=== PATIENT | female | born 2000 | race Caucasian/White ===

== ENCOUNTER 2022-03-18 15:25 | Emergency (ER) | payer OTHER, SELFPAY ==
[2022-03-18 16:13] VITALS: BP 148/83; PULSE 100; RESP 16; TEMP 36.6; O2SAT 98; BMI 29.6
--- NOTE | 2022-03-18 17:27 | ED_ITS ---
HPI - General Adult General: Chief complaint: General Medical Stated complaint: back pain/painful urination/bloodclots in urine Time Seen by Provider: 03/18/22 17:21 History of Present Illness: Patient is a 21-year-old female who comes to the ED with right flank pain and hematuria. Symptoms started last night. Right flank pain radiates down into the right lower back and into the right pelvic region. Most of the pain now is in her right lower pelvic region. She says her pain last night was an 8 out of 10 and she also had some nausea with it. Associated symptoms: Deny chest pain, dyspnea, headache(s), nausea, rash, palpitations or vomiting Review of Systems Const: Denies: fever(s), chills or fatigue Eyes: Denies: change in vision or eye discomfort ENMT: Denies: throat pain, odynophagia, nasal discharge or nasal congestion Card: Denies: chest pain, palpitations, edema, swelling of feet/ankles, dyspnea on exertion or orthopnea Resp: Denies: dyspnea, productive cough or non-productive cough GI: Denies: abdominal pain, nausea, vomiting, diarrhea, constipation or hematochezia : Reports: flank pain (Right flank), dysuria and hematuria Musc: Denies: neck pain, back pain or extremity swelling Skin/Breast: Denies: rash or new lesions Neuro: Denies: headache(s), numbness in extremities or weakness in extremities PFS ED PFSH: Medical History Family history of kidney stone No pertinent past medical history Physical Exam Const: COMMON NORMALS: no acute distress, patient oriented x3 and alert GENERAL APPEARANCE: cooperative and comfortable HENMT: COMMON NORMALS: normocephalic HEAD & SCALP: normocephalic MOUTH: Normal oral and palatal mucosa present THROAT: posterior oropharynx normal and uvula midline Neck/C-Spine: COMMON NORMALS: supple GENERAL: Yes normal visual inspection Resp: COMMON NORMALS: normal respiratory effort, No retractions, No use of accessory muscles and clear to auscultation bilaterally AUSCULTATION: clear to auscultation bilaterally Cardio: COMMON NORMALS: regular rate, regular rhythm, S1 normal heart sound present, S2 normal heart sound present, No gallops present (Cardio), No clicks present (Cardio), No murmurs present (Cardio) and Peripheral pulses 2+ throughout RATE: regular rate RHYTHM: regular rhythm HEART SOUNDS: S1 normal heart sound present and S2 normal heart sound present PERIPHERAL PULSES: Peripheral pulses 2+ throughout GI: COMMON NORMALS: Normal to inspection, nondistended, normoactive bowel sounds present, Soft to palpation, non-tender and no masses PALPATION: Yes Soft to palpation and Yes Bladder palpation abnormal : COMMON NORMALS: Yes no CVA tenderness BLADDER/KIDNEY EXAM: Yes no CVA tenderness and Yes Bladder palpation abnormal Bladder abnormal details: tender Back/Pelvis: COMMON NORMALS: no CVA tenderness Extremity: COMMON NORMALS: normal to inspection Neuro: COMMON NORMALS: patient oriented x3 and moves all extremities SENSORIUM/ORIENTATION: Yes alert Skin: GENERAL SKIN EXAM: dry skin Course Vital Signs: Vital signs: Vital Signs Temperature 97.9 F 03/18/22 16:13 Pulse Rate 90 03/18/22 20:34 Respiratory Rate 18 03/18/22 20:34 Blood Pressure 153/95 03/18/22 20:34 Pulse Oximetry 98 03/18/22 20:34 [facility] - General Adult Medical Decision Making Patient is a 21-year-old female comes to the ED with right flank pain, dysuria and hematuria. Vitals are stable. Patient appears nontoxic in no acute distress or pain. She has some tenderness upon palpation of the bladder and rest of exam is benign. White blood cell count of 12. UA shows signs of UTI. hCG negative. CT abdomen pelvis showed cystitis with bilateral pyelitis and no obstruction noted. Patient was given IV morphine and it helped with pain. She was given a dose of IV antibiotics here in the ED and was stable for discharge home. She is diagnosed with a UTI and was discharged home with a prescription for ciprofloxacin. She was told to follow-up with her PCP in the next week for reevaluation. Strict return to ED precautions given. Patient understood and agreed with plan. Lab Data I reviewed the patient's lab results. : 03/18/22 17:33 03/18/22 17:33 Radiology Impressions Abdomen/Pelvis CT 03/18/22 17:41 IMPRESSION: 1. Suggestive findings of cystitis and bilateral pyelitis. No obstruction. 2. Appendix is at the upper limit of normal in size. There is no secondary sign of inflammation. No appendicolith. 3. Small volume intermediate density pelvic free fluid. Findings suggest proteinaceous fluid or blood products. This is nonspecific but could be the result of ovarian cyst rupture. Laboratory Results WBC 12.0 10^3/uL (4.0-10.0) H 03/18/22 17: RBC 4.61 10^6/uL (4.1-5.3) 03/18/22 17: Hgb 12.9 g/dL (11.5-15.3) 03/18/22 17: Hct 40.6 % (37.0-47.0) 03/18/22 17: MCV 88.1 fl (81-99) 03/18/22: MCH 28.0 pg (28.0-34.0) 03/18/22: MCHC 31.8 g/dL (30.0-36.0) 03/18/22: RDW 14.2 % (12.1-15.1) 03/18/22: Plt Count 301 10^3/cmm (130-400) 03/18/22 17: MPV 10.7 fL (7.4-10.4) H 03/18/22 17: Neut % (Auto) 76.1 % 03/18/22 17: Lymph % (Auto) 15.7 % 03/18/22 17: [place] % (Auto) 6.7 % 03/18/22 17: Eos % (Auto) 0.6 % 03/18/22 17: Baso % (Auto) 0.4 % 03/18/22: Neut # (Auto) 9.12 10^3/uL (1.8-7.7) H 03/18/22 17: Lymph # (Auto) 1.9 10^3/uL (0.8-4.8) 03/18/22: [place] # (Auto) 0.8 10^3/uL (0.2-0.9) 03/18/22 17: Eos # (Auto) 0.1 10^3/uL (0.0-0.8) 03/18/22 17: Baso # (Auto) 0.1 10^3/uL (0.0-0.1) 03/18/22 17:33 Nucleated RBC % (auto) 0 % 03/18/22 17:33 Nucleated RBCs # 0.0 /100WBC 03/18/22 17:33 Sodium 137 mmol/L (136-145) 03/18/22 17:33 Potassium 4.4 mmol/L (3.5-5.1) 03/18/22 17:33 Chloride 103 mmol/L (98-107) 03/18/22 17:33 Carbon Dioxide 19 mmol/L (22-29) L 03/18/22 17:33 Anion Gap 19.4 (5-19) H 03/18/22 17:33 BUN 10 mg/dL (6-20) 03/18/22 17:33 Creatinine 0.5 mg/dL (0.5-0.9) 03/18/22 17:33 GFR Calculation 154.3 mL/min (90-130) H 03/18/22 17:33 Glucose 81 mg/dL (65-115) 03/18/22 17:33 Calculated Osmolality 282 mOsm/kg (285-295) L 03/18/22 17:33 Calcium 8.5 mg/dL (8.5-10.5) 03/18/22 17:33 Total Bilirubin 0.3 mg/dL (0.15-1.2) 03/18/22 17:33 AST 16 U/L (0-32) 03/18/22 17:33 ALT 11 U/L (0-33) 03/18/22 17:33 Alkaline Phosphatase 91 IU/L (35-105) 03/18/22 17:33 Total Protein 6.8 g/dL (6.6-8.7) 03/18/22 17:33 Albumin 4.6 g/dL (3.5-5.2) 03/18/22 17:33 Globulin 2.2 g/dL (1.3-4.6) 03/18/22 17:33 Lipase 39 U/L (13-60) 03/18/22 17:33 HCG, Qual Negative (Negative) 03/18/22 17:33 Urine Color [place] (Yellow) 03/18/22 17:35 Urine Appearance Clear (CLEAR) 03/18/22 17:35 Urine pH 6.5 (5-7) 03/18/22 17:35 Ur Specific [place] 1.005 (1.005-1.030) 03/18/22 17:35 Urine Protein 1+ (Negative) H 03/18/22 17:35 Urine Glucose (UA) Norm (Normal) 03/18/22 17:35 Urine Ketones Negative (Negative) 03/18/22 17:35 Urine Blood 3+ (Negative) H 03/18/22 17:35 Urine Nitrate Positive (Negative) H 03/18/22 17:35 Urine Bilirubin 1+ (Negative) H 03/18/22 17:35 Urine Urobilinogen 4 mg/dL (Negative) H 03/18/22 17:35 Ur Leukocyte Esterase 2+ (Negative) H 03/18/22 17:35 Urine RBC 0-4 /hpf (0-2) H 03/18/22 17:35 Urine WBC 25-40 /hpf (0-5) H 03/18/22 17:35 Ur Squamous Epith Cells 0-4 /hpf (0-5) H 03/18/22 17:35 Amorphous Sediment Not Reportable 03/18/22 17:35 Urine Bacteria Trace /hpf (NONE) 03/18/22 17:35 Discharge Plan Discharge Patient Disposition: Home Clinical Impression: UTI (urinary tract infection) Qualifiers: Urinary tract infection type: acute cystitis Hematuria presence: with hematuria Qualified Code(s): N30.01 - Acute cystitis with hematuria Condition: Stable Prescriptions: New ciprofloxacin HCl 500 mg tablet 500 mg PO BID 7 Days Qty: 14 0RF Discharge Orders: Discharge ED (Routine); Ordered 03/18/22 Ordered By: Jed Mack Discharge Diet: Regular Discharge Activity: Increase activity as tolerated Patient Instructions: Urinary Tract Infection in Women (DC) Activity Restrictions/Additional Instructions: Follow-up with medical provider as directed in the next 3 to 5 days for reevaluation. Take medications as prescribed. Return to the ER or your medical provider if condition worsens after being on antibiotics for 48 to 72 hours. Please read and understand discharge instructions. Thank you for choosing [facility] for your healthcare needs today. Please realize this is an emergency room and that we are providing you with a medical screening exam and this may not be complete and all inclusive of all the testing and or work up that you may need to determine your ailment or severity of your illness. It is very important that you follow up as instructed or that you return to the Emergency Department should you have concerns or if your condition changes or worsens in any way. Coding Level of Care Code ED Fashion Patternmaker for Sav Fwd Exam Comprehensive
--- NOTE | 2022-03-18 17:41 | CTR_ITS ---
PROCEDURE INFORMATION: Exam: CT Abdomen And Pelvis Without Contrast Exam date and time: 03/18/2022 6:27 PM Age: 21 years old Clinical indication: Abdominal pain; Flank; Right; Additional info: Right flank pain, dysuria and hematuria TECHNIQUE: Imaging protocol: Computed tomography of the abdomen and pelvis without contrast. Radiation optimization: All CT scans at this facility use at least one of these dose optimization techniques: automated exposure control; mA and/or kV adjustment per patient size (includes targeted exams where dose is matched to clinical indication); or iterative reconstruction. COMPARISON: No relevant prior studies available. RADIATION DOSE METRICS: Total DLP (mGy-cm): 1524.16 FINDINGS: Tubes, catheters and devices: An intrauterine device is appropriately positioned within the endometrial canal. Lungs: Lung bases are clear. Liver: The liver is normal. Gallbladder and bile ducts: The gallbladder is normal. There is no biliary dilation. Pancreas: The pancreas is normal. Spleen: The spleen is unremarkable. Adrenal glands: The adrenal glands are unremarkable. Kidneys and ureters: There is no hydronephrosis or stones. There is mild diffuse bilateral periureteral edema. Stomach and bowel: The stomach is decompressed, preventing meaningful evaluation of wall thickness. The small bowel is nondilated. The colon is unremarkable. Appendix: The appendix is at the upper limit of normal in size measuring 8 mm diameter. No appendicolith. No periappendiceal edema. Intraperitoneal space: Small volume intermediate density pelvic free fluid. There is no free air or significant intraperitoneal free fluid. Vasculature: The aorta is unremarkable. There is no aneurysm. Lymph nodes: There is no lymphadenopathy in the retroperitoneum, mesentery, pelvis or inguinal regions. Urinary bladder: There is diffuse serosal surface edema of the urinary bladder. Reproductive: There is no adnexal mass or large cyst. Bones/joints: Bones are unremarkable. Soft tissues: The abdominal wall is intact. CT/CT kidney stone [id number] IMPRESSION: 1. Suggestive findings of cystitis and bilateral pyelitis. No obstruction. 2. Appendix is at the upper limit of normal in size. There is no secondary sign of inflammation. No appendicolith. 3. Small volume intermediate density pelvic free fluid. Findings suggest proteinaceous fluid or blood products. This is nonspecific but could be the result of ovarian cyst rupture.
[2022-03-18 17:54] LABS: Basophils # 0.1 10^3/uL (0.0-0.1); Basophils % 0.4 %; Eosinophils # 0.1 10^3/uL (0.0-0.8); Eosinophils % 0.6 %; Hematocrit 40.6 % (37.0-47.0); Hemoglobin 12.9 g/dL (11.5-15.3); Lymphocytes # 1.9 10^3/uL (0.8-4.8); Lymphocytes % 15.7 %; Mean Corpuscular HGB Conc 31.8 g/dL (30.0-36.0); Mean Corpuscular Volume 88.1 fl (81-99); Mean Platelet Volume 10.7 fL (7.4-10.4); Monocytes # 0.8 10^3/uL (0.2-0.9); Monocytes % 6.7 %; Neutrophils # 9.12 10^3/uL (1.8-7.7); Neutrophils % 76.1 %; Nucleated Red Blood Cells % 0 %; Platelet Count 301 10^3/cmm (130-400); Red Blood Count 4.61 10^6/uL (4.1-5.3); Red Cell Distribution Width 14.2 % (12.1-15.1)
[2022-03-18 18:15] LABS: Add Urine Culture? Yes; Add Urine Microscopic? YES; Bacteria Urine TRACE /hpf; Bilirubin Urine 1+ (Negative); Blood Urine 3+ (Negative); Glucose Urine UA Norm (Normal); Ketones Urine Negative (Negative); Leukocyte Esterase Urine 2+ (Negative); Nitrate Urine Positive (Negative); Protein Urine 1+ (Negative); RBC Urine 0-4 /hpf (0-2); Specific Gravity, Urine 1.005 (1.005-1.030); Squamous Epithelial Cell Urine 0-4 /hpf (0-5); Urine Appearance Clear (CLEAR); Urine Color Orange (Yellow); Urobilinogen Urine 4 mg/dL (Negative); WBC Urine 25-40 /hpf (0-5); pH Urine 6.5 (5-7)
[2022-03-18 18:17] LABS: HCG, Serum Qual Negative (Negative)
[2022-03-18 18:21] VITALS: BP 158/88; PULSE 94; RESP 18; O2SAT 94
[2022-03-18 18:24] LABS: Alanine Aminotransferase 11 U/L (0-33); Albumin Level 4.6 g/dL (3.5-5.2); Alkaline Phosphatase 91 IU/L (35-105); Blood Urea Nitrogen 10 mg/dL (6-20); Calcium 8.5 mg/dL (8.5-10.5); Carbon Dioxide 19 mmol/L (22-29); Chloride 103 mmol/L (98-107); Globulin 2.2 g/dL (1.3-4.6); Glomerular Filtration Rate 154.3 mL/min (90-130); Glucose 81 mg/dL (65-115); Lipase 39 U/L (13-60); Osmolality Calculated 282 mOsm/kg (285-295); Sodium 137 mmol/L (136-145); Total Bilirubin 0.3 mg/dL (0.15-1.2); Total Protein 6.8 g/dL (6.6-8.7)
[2022-03-18 18:25] LABS: Anion Gap 19.4 (5-19); Aspartate Amino Transferase 16 U/L (0-32); Potassium 4.4 mmol/L (3.5-5.1)
[2022-03-18 18:38] VITALS: RESP 14
[2022-03-18] MEDS: morphine 4 mg/mL SDV 1 mL 2 MG IVP (18:38)
[2022-03-18] MEDS: sodium chloride 0.9% 500 ML 999 ML IV (18:38)
[2022-03-18] MEDS: diphenhydrAMINE 50 mg/mL SDV 1mL IVP (18:47)
--- NOTE | 2022-03-18 18:47 | PC.NURSE ---
pt stated she was allergic to zofran- med discarded- morphine given- patient had an instant reaction, redness and welts up left arm above site, provider contacted - additional meds given reaction controlled patient denies and resp irritation
[2022-03-18] MEDS: cefTRIAXone 1,000 MG in sodium chloride 0.9% (plus) 50 ML 100 MG IV (20:07)
[2022-03-18 20:19] VITALS: BP 163/88; PULSE 82; RESP 18; O2SAT 96
[2022-03-18 20:34] VITALS: BP 153/95; PULSE 90; RESP 18; O2SAT 98
== END 2022-03-18 20:29 | disposition home or self-care (01) ==
PROVIDERS: Emergency Provider Physician Assistant
DX: N30.01 Acute cystitis with hematuria (principal)
CPT/HCPCS: 74176; 80053; 81001; 83690; 84703; 85025; 87086; 96365; 96375; 99284; J0696; J1200; J2270; J2930; J7040

== ENCOUNTER 2022-10-07 18:14 | Emergency (ER) | payer OTHER, SELFPAY ==
[2022-10-07 18:38] VITALS: BP 156/88; PULSE 109; RESP 18; TEMP 37; O2SAT 99
--- NOTE | 2022-10-07 18:53 | XRR_ITS ---
PROCEDURE INFORMATION: Exam: XR Chest Exam date and time: 10/07/2022 7:35 PM Age: 22 years old Clinical indication: Cough and fever; Additional info: Cough, fever TECHNIQUE: Imaging protocol: Radiologic exam of the chest. Views: 1 view. COMPARISON: CT kidney stone [id number] 03/18/2022 6:27 PM FINDINGS: Lungs: Unremarkable. No consolidation. Pleural spaces: Unremarkable. No pleural effusion. No pneumothorax. Heart/Mediastinum: Unremarkable. No cardiomegaly. Bones/joints: Unremarkable. XR/XR chest 1V portable [id number] IMPRESSION: No acute findings.
--- NOTE | 2022-10-07 19:48 | ED_ITS ---
HPI - General Adult General: Chief complaint: General Medical Stated complaint: fever SOB nausea Time Seen by Provider: 10/07/22 19:43 History of Present Illness: Patient has been ill for the last 3 days. Patient has persistent cough and some nausea. Patient appears unwell but not toxic. Patient denies any chronic medical problems. Associated symptoms: Reports malaise Review of Systems Const: Reports: fever(s) and malaise Resp: Reports: non-productive cough PFSH ED PFSH: Medical History Family history of kidney stone No pertinent past medical history Physical Exam Const: COMMON NORMALS: alert HENMT: COMMON NORMALS: normocephalic HEAD & SCALP: normocephalic NOSE: Nasal discharge present THROAT: posterior oropharynx normal Neck/C-Spine: COMMON NORMALS: full ROM Resp: COMMON NORMALS: normal respiratory effort and clear to auscultation bilaterally AUSCULTATION: clear to auscultation bilaterally Cardio: COMMON NORMALS: regular rhythm RATE: tachycardic (109) RHYTHM: regular rhythm GI: COMMON NORMALS: Soft to palpation and non-tender PALPATION: Yes Soft to palpation : COMMON NORMALS: Yes no CVA tenderness BLADDER/KIDNEY EXAM: Yes no CVA tenderness Back/Pelvis: COMMON NORMALS: no CVA tenderness Extremity: COMMON NORMALS: normal to inspection Neuro: SENSORIUM/ORIENTATION: Yes alert Skin: COMMON NORMALS: turgor normal GENERAL SKIN EXAM: turgor normal Course Vital Signs: Vital signs: Vital Signs Temperature 98.6 F 10/07/22 18:38 Pulse Rate 98 10/07/22 21:01 Respiratory Rate 18 10/07/22 21:01 Blood Pressure 167/81 10/07/22 21:01 Pulse Oximetry 100 10/07/22 21:01 [facility] - General Adult Medical Decision Making 22-year-old female comes in today with cough, congestion, and fever since Saturday. On exam patient appears unwell but not toxic. Lungs are clear to auscultation. Heart rates regular. Skin is warm and dry. Vital signs are normal except for some mild elevation in blood pressure at 156 systolic, and a pulse of 109. Differential diagnosis includes but not limited to pneumonia, influenza, COVID-19, upper respiratory infection. Chest x-ray was unremarkable. Patient was given Promethazine DM to help with cough. Patient was also given a dose of dexamethasone due to persistent coughing. Patient was recommended to drink plenty of fluids. Even though the COVID-19 test and influenza test were negative I still believe patient probably has influenza since her propensity in the community at this time. Patient reported understanding of care plan need for follow-up or return to the ER. Lab Data Radiology Impressions Chest X-Ray 10/07/22 18:53 IMPRESSION: No acute findings. Laboratory Results Influenza Type A Ag negative (Negative) 10/07/22 20:01 Influenza Type B Ag negative (Negative) 10/07/22 20:01 SARS-CoV-2 Ag (Rapid) negative (Negative) 10/07/22 20:01 Discharge Plan Discharge Patient Disposition: Home Clinical Impression: Viral syndrome Condition: Stable Prescriptions: New promethazine-DM 6.25-15 mg/5 mL syrup 5 ml PO Q6H PRN (Reason: cough) Qty: 118 0RF Discharge Orders: Discharge ED (Routine); Ordered 10/07/22 Ordered By: Darrel Conroy Referrals: [facility], [Primary Care Provider] - Discharge Diet: Usual diet Discharge Activity: Increase activity as tolerated Patient Instructions: Upper Respiratory Infection (ED) Activity Restrictions/Additional Instructions: Home and rest. Drink plenty of fluids. Use Promethazine DM 5 mL every 6 hours as needed for cough or nausea. Is important to stay hydrated and to drink plenty of fluids. Follow-up with primary care as needed. Return to ED for worsening symptoms such as inability to hold fluids down, increasing shortness of breath, severe chest pain, or new concerns. Stand Alone Forms: Work/School Release Coding Level of Care Code ED Computer System Technician for Sav Fwd Exam Comprehensive
[2022-10-07] MEDS: dexamethasone 10 mg/mL INJ IM (20:13)
[2022-10-07 20:41] LABS: Influenza A by IFA negative (Negative); Influenza B by IFA negative (Negative)
[2022-10-07 20:42] LABS: SARS Covid-2 Antigen negative (Negative)
[2022-10-07 21:01] VITALS: BP 167/81; PULSE 98; RESP 18; O2SAT 100
== END 2022-10-07 21:03 | disposition home or self-care (01) ==
PROVIDERS: Emergency Provider Nurse Practitioner Family
DX: B34.9 Viral infection, unspecified (principal); Z20.822 Contact with and (suspected) exposure to COVID-19
CPT/HCPCS: 71045; 87426; 87804; 96372; 99284; J1100

== ENCOUNTER → 2025-08-12 10:07 | Outpatient (BNVA) | payer OTHER, SELFPAY | PROVIDERS: Visit Provider Nurse Practitioner Women's Health | DX: Z01.419 Encounter for gynecological examination (general) (routine) without abnormal findings (principal) | CPT/HCPCS: 87624 ==